=== PATIENT | female | born 1970 | race Caucasian/White ===

== ENCOUNTER 2016-06-17 23:02 | Emergency (ER) | payer BC ==
[2016-06-17] MEDS ORDERED: KETOROLAC 30 MG/1 ML SDV IVP ONE (23:28)
[2016-06-17] MEDS ORDERED: HYDROmorphONE/DILAUDID 1 MG/ML SYR IVP ONE (23:28)
[2016-06-17] MEDS ORDERED: FAMOTIDINE 20 MG TAB PO ONE (23:28)
[2016-06-17] MEDS ORDERED: NS 1,000 ML IV ONE (23:28)
[2016-06-17 23:37] LABS: % IMMATURE GRANULYOCYTES 0.3 % (0.0-1.1); ABSOLUTE IMMATURE GRANULOCYTES 0.04 10^3/uL (0.00-0.10); ADD DIFF? NO; ADD MORPH? NO; ADD SCAN? NO; ATYPICAL LYMPHOCYTE FLAG 0 (0-99); FRAGMENT RBC FLAG 0 (0-99); HEMATOCRIT 42.3 % (38.0-47.0); HEMOGLOBIN 14.2 g/dL (12.6-16.3); LEFT SHIFT FLG 0 (0-99); LIPEMIA HEMOLYSIS FLAG 80 (0-99); MEAN CELL HEMOGLOBIN 28.5 pg (27.9-34.1); MEAN CELL HEMOGLOBIN CONCENTR. 33.6 g/dL (32.4-36.7); MEAN CELL VOLUME 84.9 fL (81.5-99.8); MEAN PLATELET VOLUME 8.5 fL (8.7-11.7); PLATELET CLUMPS FLAG 0 (0-99); PLATELET COUNT 314 10^3/uL (150-400); RED BLOOD CELL COUNT 4.98 10^6/uL (4.18-5.33); RED CELL DISTRIBUTION WIDTH 12.9 % (11.5-15.2)
[2016-06-18] MEDS ORDERED: ONDANSETRON 4 MG/2 ML VIAL ONE (00:01)
[2016-06-18] MEDS ORDERED: ONDANSETRON 4 MG/2 ML VIAL IVP ONE (00:04)
[2016-06-18 00:06] LABS: ANION GAP 8 mEq/L (8-16); CALCIUM 9.1 mg/dL (8.5-10.4); CARBON DIOXIDE 25 mEq/l (22-31); CHLORIDE 109 mEq/L (97-110); CREATININE 0.7 mg/dL (0.6-1.0); GLOMERULAR FILTRATION RATE > 60; GLUCOSE 98 mg/dL (70-100); POTASSIUM 3.7 mEq/L (3.5-5.2); SODIUM 142 mEq/L (134-144)
--- NOTE | 2016-06-18 00:08 | EDPHY ---
H & P Stated Complaint: RUQ pain, Time Seen by Provider: 06/17/16 23:19 HPI/ROS: HPI The patient presents with abdominal pain that began at about 6:00 p.m. tonight when eating a pizza. The pain is described as a tightness throughout her upper abdomen associated with nausea. It has been constant, it is moderate in severity. She took ibuprofen and milk of magnesia without any improvement in her symptoms. She also tried a warm bath and that did not help. She has no prior history of similar pain. She denies any recent alcohol use. She does have a history of gastric bypass in 2011. She is currently being treated for chronic hepatitis C with Tomas. REVIEW OF SYSTEMS Constitutional: No fever, no chills. Eyes: No discharge. ENT: No sore throat. Cardiovascular: No chest pain, no palpitations. Respiratory: No cough, no shortness of breath. Gastrointestinal: No abdominal pain, no vomiting. Genitourinary: No hematuria. Musculoskeletal: No back pain. Skin: No rashes. Neurological: No headache. PMHx: Hep C, history of gastric bypass Soc Hx: denies EtOH use PHYSICAL General Appearance: Alert, no distress Eyes: Pupils equal and round no pallor or injection ENT, Mouth: Mucous membranes moist Respiratory: There are no retractions, lungs are clear to auscultation Cardiovascular: Regular rate and rhythm Gastrointestinal: Abdomen is soft with tenderness in the left upper quadrant without rebound or guarding Neurological: A&O, moves all extremities Skin: Warm and dry, no rashes Musculoskeletal: Neck is supple non tender Extremities: symmetrical, full range of motion Psychiatric: Patient is oriented X 3, there is no agitation Source: Patient Exam Limitations: No limitations - Personal History LMP (Females 10-55): Irregular Tetanus Vaccine Date: < 10 YEARS - Medical/Surgical History Hx Asthma: Yes Hx Chronic Respiratory Disease: No Hx Diabetes: No Hx Cardiac Disease: No Hx Renal Disease: No Hx Cirrhosis: No Hx Alcoholism: No Hx HIV/AIDS: No Hx Splenectomy or Spleen Trauma: No Other PMH: uterine ablation/hep c, asthma. surgery tonsilectomy, gastric bypass, tubal ligation - Social History Smoking Status: Heavy smoker Constitutional: Initial Vital Signs Temperature (C) 37.3 C 06/17/16 23:06 Heart Rate 103 H 06/17/16 23:06 Respiratory Rate 20 06/17/16 23:06 Blood Pressure 163/113 H 06/17/16 23:06 O2 Sat (%) 99 06/17/16 23:06 O2 Delivery Mode Room Air O2 (L/minute) 2 Allergies/Adverse Reactions: Penicillins Allergy (Severe, Verified 10/01/15 13:37) Hives Home Medications: Medication Instructions Recorded Albuterol Inhaler 08/29/15 Diazepam [Valium 10 MG (RX)] 10 mg PO TID PRN #20 tab 08/29/15 Cyclobenzaprine [Flexeril 10 MG 10 mg PO TID PRN #20 tab 09/10/15 (RX)] Diazepam [Valium] 5 mg PO TID PRN #15 tab 09/10/15 oxyCODONE/APAP 5/325 [Percocet 1 tab PO Q4-6PRN PRN #14 tab 09/10/15 5/325 (*)] oxyCODONE/APAP 5/325 [Percocet 1 tab PO Q4-6PRN PRN #10 tab 10/01/15 5/325] Medical Decision Making Procedures: Bedside limited abdominal Ultrasound- performed and interpreted by me. Indication: Pancreatitis Findings: No gallstones no gallbladder wall thickening, no pericholecystic fluid Impression: No sonographic evidence of cholelithiasis or cholecystitis ED Course/Re-evaluation: The patient was given IV fluids and pain medication with some improvement in her symptoms. Labs were obtained which reveal an elevated lipase. I feel she could have pancreatitis as related to her alcohol use. I have performed a right upper quadrant ultrasound and she has no signs of gallstones. Of note, her medication for hep C Harvoni can cause an elevated lipase. I do not think she has any complication of her gastric bypass surgery and she is not vomiting and is having normal bowel movements. Her abdominal pain resolved while in the emergency room. She will be discharged home with follow up with her primary care doctor. I have advised her on a clear liquid diet. There is some concern about opiate pain medication abuse, thus I will not prescribe this for her at this time. Differential Diagnosis: This is a 45-year-old female who presents with upper abdominal pain which has been present for the last several hours after eating pizza. Her symptoms are associated with nausea. On exam, she is tender in her left upper quadrant. Differential diagnosis includes pancreatitis, gastritis, biliary colic. - Data Points Laboratory Results: Laboratory Results 06/17/16 23:30 06/17/16 23:30 06/17/16 06/17/16 23:50 23:30 WBC 11.62 H 10^3/uL (3.80-9.50) RBC 4.98 10^6/uL (4.18-5.33) Hgb 14.2 g/dL (12.6-16.3) Hct 42.3 % (38.0-47.0) MCV 84.9 fL (81.5-99.8) MCH 28.5 pg (27.9-34.1) MCHC 33.6 g/dL (32.4-36.7) RDW 12.9 % (11.5-15.2) Plt Count 314 10^3/uL (150-400) MPV 8.5 L fL (8.7-11.7) Neut % (Auto) 79.0 H % (39.3-74.2) Lymph % (Auto) 11.5 L % (15.0-45.0) [place] % (Auto) 7.3 % (4.5-13.0) Eos % (Auto) 1.6 % (0.6-7.6) Baso % (Auto) 0.3 % (0.3-1.7) Nucleat RBC Rel Count 0.0 % (0.0-0.2) Absolute Neuts (auto) 9.17 H 10^3/uL (1.70-6.50) Absolute Lymphs (auto) 1.34 10^3/uL (1.00-3.00) Absolute Monos (auto) 0.85 H 10^3/uL (0.30-0.80) Absolute Eos (auto) 0.19 10^3/uL (0.03-0.40) Absolute Basos (auto) 0.03 10^3/uL (0.02-0.10) Absolute Nucleated RBC 0.00 10^3/uL (0-0.01) Immature Gran % 0.3 % (0.0-1.1) Immature Gran # 0.04 10^3/uL (0.00-0.10) Sodium 142 mEq/L (134-144) Potassium 3.7 mEq/L (3.5-5.2) Chloride 109 mEq/L (97-110) Carbon Dioxide 25 mEq/l (22-31) Anion Gap 8 mEq/L (8-16) BUN 11 mg/dL (7-23) Creatinine 0.7 mg/dL (0.6-1.0) Estimated GFR > 60 Glucose 98 mg/dL (70-100) Calcium 9.1 mg/dL (8.5-10.4) Total Bilirubin 1.0 mg/dL (0.1-1.4) Conjugated Bilirubin 0.6 H mg/dL (0.0-0.5) Unconjugated Bilirubin 0.4 mg/dL (0.0-1.1) AST 22 IU/L (14-46) ALT 25 IU/L (9-52) Alkaline Phosphatase 68 IU/L (38-126) Total Protein 7.1 g/dL (6.3-8.2) Albumin 4.2 g/dL (3.5-5.0) Lipase 313.0 H IU/L (23-300) Urine Color YELLOW Urine Appearance CLEAR Urine pH 6.0 (5.0-7.5) Ur Specific [place] 1.005 (1.002-1.030) Urine Protein NEGATIVE (NEGATIVE) Urine Ketones TRACE H (NEGATIVE) Urine Blood NEGATIVE (NEGATIVE) Urine Nitrate NEGATIVE (NEGATIVE) Urine Bilirubin NEGATIVE (NEGATIVE) Urine Urobilinogen NEGATIVE EU (0.2-1.0) Ur Leukocyte Esterase NEGATIVE (NEGATIVE) Ur Culture Indicated? NOT INDICATED (NI) Urine Glucose NEGATIVE (NEGATIVE) Medications Given: Discontinued Medications Famotidine (Pepcid) 20 mg PO EDNOW ONE Stop: 06/17/16 23:29 Last Admin: 06/17/16 23:59 Dose: Not Given Hydromorphone HCl (Dilaudid) 0.5 mg IVP EDNOW ONE Stop: 06/17/16 23:29 Last Admin: 06/17/16 23:59 Dose: 0.5 mg Hydromorphone HCl (Dilaudid) 0.5 mg IVP ONCE ONE Stop: 06/18/16 01:54 Last Admin: 06/18/16 01:54 Dose: 0.5 mg Sodium Chloride (Ns) 1,000 mls @ 0 mls/hr IV ONCE ONE PRN Reason: Wide Open Stop: 06/17/16 23:29 Last Admin: 06/18/16 00:00 Dose: 1,000 mls Sodium Chloride (Ns) 1,000 mls @ 0 mls/hr IV ONCE ONE PRN Reason: Wide Open Stop: 06/18/16 01:39 Last Admin: 06/18/16 01:52 Dose: 1,000 mls Ketorolac Tromethamine (Toradol) 30 mg IVP EDNOW ONE Stop: 06/17/16 23:29 Last Admin: 06/17/16 23:59 Dose: 30 mg Ondansetron HCl (Zofran) 4 mg IVP EDNOW ONE Stop: 06/18/16 00:05 Last Admin: 06/18/16 00:05 Dose: 4 mg Departure - Departure Disposition: Home, Routine, Self-Care Clinical Impression: Pancreatitis Qualifiers: Chronicity: acute Pancreatitis type: unspecified pancreatitis type Acute pancreatitis complication: unspecified Qualifier Code: (K85.90) Acute pancreatitis without necrosis or infection, unspecified Condition: Good Instructions: Pancreatitis (ED), Clear Liquid Diet (ED) Additional Instructions: Please take the clear liquids until your feeling better. You should follow up with your regular doctor in 1-2 days. Referrals: Delma Cedillo MD [Primary Care Provider] - As per Instructions
[2016-06-18 00:09] LABS: COLOR YELLOW; LEUKOCYTE ESTERASE,URINE NEGATIVE (NEGATIVE); NITRITE,URINE NEGATIVE (NEGATIVE)
[2016-06-18 00:38] LABS: ALBUMIN 4.2 g/dL (3.5-5.0); BILIRUBIN-CONJUGATED 0.6 mg/dL (0.0-0.5); BILIRUBIN-UNCONJUGATED 0.4 mg/dL (0.0-1.1); TOTAL PROTEIN 7.1 g/dL (6.3-8.2)
[2016-06-18] MEDS ORDERED: HYDROmorphONE/DILAUDID 1 MG/ML SYR IVP PRN (01:38)
[2016-06-18] MEDS ORDERED: NS 1,000 ML IV ONE (01:38)
[2016-06-18] MEDS ORDERED: HYDROmorphONE/DILAUDID 1 MG/ML SYR ONE (01:46)
[2016-06-18] MEDS ORDERED: HYDROmorphONE/DILAUDID 1 MG/ML SYR IVP ONE (01:53)
[2016-06-18 02:00] VITALS: RESP 16
[2016-06-18 02:45] VITALS: BP 133/74; PULSE 74; TEMP 98.1; O2SAT 93
== END 2016-06-18 02:44 | disposition home or self-care (01) ==
DX: K85.90 Acute pancreatitis without necrosis or infection, unspecified (principal); J45.909 Unspecified asthma, uncomplicated; F17.200 Nicotine dependence, unspecified, uncomplicated; Z98.51 Tubal ligation status
CPT/HCPCS: 96374; J1170; J1885; J2405

== ENCOUNTER 2016-06-18 14:09 | Inpatient (IN) | payer BC ==
--- NOTE | 2016-06-18 14:49 | EDPHY ---
H & P Stated Complaint: abd pain(seen yesterday) hypoxia in triage(out of inhaler) HPI/ROS: HPI CHIEF COMPLAINT: Abdominal pain HISTORY OF PRESENT ILLNESS: this patient 45-year-old female, significant past medical history for hepatitis-C, gastric bypass surgery, asthma, presents to the emergency room with epigastric burning abdominal pain. She has associated nausea with this however no vomiting. She states she was seen here last night for abdominal pain was diagnosed with mild pancreatitis. She tells me her pain persist. It is noted at triage her pulse ox was 85%. She does have a history asthma she does endorse mild wheezing however she tells me that she cannot take deep breaths in because hurts her abdomen. She does remain normal bowel movement this morning, no fever, denies chest pain or shortness of breath. Tells me abdominal pain 10/10 epigastric. Worse since yesterday. Past Medical History: Hepatitis-C, asthma, pancreatitis Past Surgical History: Gastric bypass surgery Social History: tobacco use, denies alcohol, denies illicit drugs, lives locally Family History: Noncontributory ROS REVIEW OF SYSTEMS: A comprehensive 10 point review of systems is otherwise negative aside from elements mentioned in the history of present illness. Exam Constitutional triage nursing summary reviewed, vital signs reviewed, awake/ alert. Eyes normal conjunctivae and sclera, EOMI, PERRLA. HENT normal inspection, atraumatic, moist mucus membranes, no epistaxis, neck supple/ no meningismus, no raccoon eyes. Respiratory faint wheezing throughout all lung navas, normal breath sounds, no respiratory distress, no wheezing. Cardiovascular rate normal, regular rhythm, no murmur, no edema, distal pulses normal. Gastrointestinal soft, mild tenderness palpation epigastric region, no rebound , no guarding, normal bowel sounds, no distension, no pulsatile mass. Genitourinary no CVA tenderness. Musculoskeletal no midline vertebral tenderness, full range of motion, no calf swelling, no tenderness of extremities, no meningismus, good pulses, neurovascularly intact. Skin pink, warm, & dry, no rash, skin atraumatic. Neurologic awake, alert and oriented x 3, AAOx3, moves all 4 extremities equally, motor intact, sensory intact, CN II-XII intact, normal cerebellar, normal vision, normal speech. Psychiatric normal mood/affect. Heme/Lymph/Immune no lymphadenopathy. Differential diagnosis includes but is not limited to and in no particular order : Bowel obstruction, appendicitis, gallbladder disease, diverticulitis, colitis , enteritis, perforated viscus, gastritis, GERD, esophagitis, urinary tract infection, pyelonephritis, kidney stones Medical Decision Making: This patient had an IV established receive IV fluid bolus, Zofran for nausea, Dilaudid for pain. Patient had a CT scan abdomen pelvis with IV contrast to further help delineate her acute abdominal pain. She will have a chest x-ray due to pulse ox being low 85%, will check a troponin EKG. And re-evaluate. Basic blood work as well including CBC, electrolytes LFTs. Lipase. Re-evaluation: EKG interpretation by me on record in [employer] system. Impression time of EKG 1538, this is sinus rhythm rate of 86 there is no acute ischemic changes specifically notice to ST elevation, ST depression, T-wave abnormalities prolonged intervals. ED x-ray chest one view: this shows right basilar atelectasis versus infiltrate. Also appears to be possible free air under the right anastasia- diaphragm. CT scan of the abdomen pelvis with IV contrast. The results of the study are shows a moderate to large amount of free air in the abdomen, most likely from suture site of gastric bypass. The study was read by Dr. Carlisle. I viewed the images myself on the PACS system. 1630: this time this patient is hemodynamically stable I will consult surgery due to free air in the abdomen. She is NPO. IV Invanz has been ordered for intra-abdominal process. I have canceled her Rocephin and azithro. Critical Care: Total Critical Care Time Spent Managing this Patient: 60 Minutes. This time was spent Exclusively with this patient. This Care was exclusive of procedures. The Organ System/life at risk was intra-abdominal free air This Patient was in Critical Condition because intra-abdominal free air bowel perforation 1636: I have updated the patient on her CT scan findings. She understands to not eat or drink anything. Given the amount of free air on her CT scan I have consulted General surgery Dr. Daley to see and evaluate the patient. Source: Patient - Personal History LMP (Females 10-55): Over 28 Days Ago Current Tetanus/Diphtheria Vaccine: Yes Tetanus Vaccine Date: < 10 YEARS - Medical/Surgical History Hx Asthma: Yes Hx Chronic Respiratory Disease: No Hx Diabetes: No Hx Cardiac Disease: No Hx Renal Disease: No Hx Cirrhosis: No Hx Alcoholism: No Hx HIV/AIDS: No Hx Splenectomy or Spleen Trauma: No Other PMH: uterine ablation/hep c, asthma. surgery tonsilectomy, gastric bypass, tubal ligation - Social History Smoking Status: Heavy smoker Constitutional: Initial Vital Signs Temperature (C) 37.5 C 06/18/16 14:17 Heart Rate 98 06/18/16 14:17 Respiratory Rate 24 H 06/18/16 14:17 Blood Pressure 145/87 H 06/18/16 14:17 O2 Sat (%) 85 L 06/18/16 14:17 O2 Delivery Mode Nasal Cannula O2 (L/minute) 2 Allergies/Adverse Reactions: Penicillins Allergy (Severe, Verified 06/18/16 14:15) Hives Home Medications: Medication Instructions Recorded Albuterol Hfa Anes Only [Proair 1 - 2 puffs IH PRN PRN 08/29/15 Hfa Icu (*)] Ibuprofen [Motrin (*)] 600 mg PO PRN PRN 06/18/16 Ledipasvir/Sofosbuvir [Harvoni 1 each PO DAILY 06/18/16 90-400 mg Tablet] Magnesium Hydroxide [Milk of 30 ml PO PRN PRN 06/18/16 Magnesia] Zolpidem Tartrate [Ambien 5MG (*)] 5 mg PO HS 06/18/16 Medical Decision Making - Data Points Laboratory Results: Laboratory Results 06/18/16 14:45 06/18/16 14:45 Medications Given: Discontinued Medications Albuterol/Ipratropium (Duoneb) 3 ml IH EDNOW ONE Stop: 06/18/16 14:58 Last Admin: 06/18/16 15:15 Dose: 3 ml Hydromorphone HCl (Dilaudid) 1 mg IVP EDNOW ONE Stop: 06/18/16 14:57 Last Admin: 06/18/16 15:14 Dose: 1 mg Sodium Chloride (Ns) 2,000 mls @ 0 mls/hr IV ONCE ONE PRN Reason: Wide Open Stop: 06/18/16 14:57 Last Admin: 06/18/16 15:14 Dose: 2,000 mls Azithromycin 500 mg/ Dextrose 255 mls @ 255 mls/hr IV EDNOW ONE PRN Reason: Protocol Stop: 06/18/16 16:59 Last Admin: 06/18/16 16:33 Dose: Not Given Ceftriaxone Sodium/Dextrose (Rocephin 1 Gm (Premix)) 50 mls @ 100 mls/hr IV EDNOW ONE PRN Reason: Protocol Stop: 06/18/16 16:29 Last Admin: 06/18/16 16:34 Dose: Not Given Ertapenem 1 gm/ Sodium (Chloride) 100 mls @ 200 mls/hr IV EDNOW ONE PRN Reason: Protocol Stop: 06/18/16 17:00 Last Admin: 06/18/16 16:52 Dose: 100 mls Methylprednisolone Sodium Succinate (Solu-Medrol) 125 mg IVP EDNOW ONE Stop: 06/18/16 16:05 Last Admin: 06/18/16 16:34 Dose: Not Given Ondansetron HCl (Zofran) 4 mg IVP EDNOW ONE Stop: 06/18/16 14:57 Last Admin: 06/18/16 15:15 Dose: 4 mg Departure - Departure Disposition: [facility] Clinical Impression: Intra-abdominal free air of unknown etiology Abdominal pain Qualifiers: Abdominal location: generalized Qualifier Code: (R10.84) Generalized abdominal pain Condition: Fair
[2016-06-18] MEDS ORDERED: NS 2,000 ML IV ONE (14:56)
[2016-06-18] MEDS ORDERED: ONDANSETRON 4 MG/2 ML VIAL IVP ONE (14:56)
[2016-06-18] MEDS ORDERED: HYDROmorphONE/DILAUDID 1 MG/ML SYR IVP ONE (14:56)
[2016-06-18] MEDS ORDERED: IPRATROPIUM/ALBUTEROL 3 ML DEYVIAL IH ONE (14:57)
[2016-06-18 15:04] LABS: % IMMATURE GRANULYOCYTES 0.4 % (0.0-1.1); ABSOLUTE IMMATURE GRANULOCYTES 0.04 10^3/uL (0.00-0.10); ADD DIFF? NO; ADD MORPH? NO; ADD SCAN? NO; ATYPICAL LYMPHOCYTE FLAG 10 (0-99); FRAGMENT RBC FLAG 0 (0-99); HEMOGLOBIN 14.5 g/dL (12.6-16.3); LEFT SHIFT FLG 10 (0-99); LIPEMIA HEMOLYSIS FLAG 80 (0-99); MEAN CELL HEMOGLOBIN 28.2 pg (27.9-34.1); MEAN CELL HEMOGLOBIN CONCENTR. 32.2 g/dL (32.4-36.7); MEAN CELL VOLUME 87.5 fL (81.5-99.8); MEAN PLATELET VOLUME 8.8 fL (8.7-11.7); PLATELET CLUMPS FLAG 0 (0-99); PLATELET COUNT 319 10^3/uL (150-400); RED BLOOD CELL COUNT 5.14 10^6/uL (4.18-5.33); RED CELL DISTRIBUTION WIDTH 13.1 % (11.5-15.2)
[2016-06-18 15:18] LABS: ALANINE AMINOTRANSFERASE 22 IU/L (9-52); ALBUMIN 3.5 g/dL (3.5-5.0); ALKALINE PHOSPHATASE 67 IU/L (38-126); ANION GAP 9 mEq/L (8-16); ASPARTATE AMINOTRANSFERASE 18 IU/L (14-46); BILIRUBIN,TOTAL 1.3 mg/dL (0.1-1.4); BILIRUBIN-CONJUGATED 0.3 mg/dL (0.0-0.5); CARBON DIOXIDE 23 mEq/l (22-31); CHLORIDE 109 mEq/L (97-110); CREATININE 0.7 mg/dL (0.6-1.0); GLOMERULAR FILTRATION RATE > 60; GLUCOSE 81 mg/dL (70-100); POTASSIUM 4.2 mEq/L (3.5-5.2); SODIUM 141 mEq/L (134-144); TOTAL PROTEIN 6.5 g/dL (6.3-8.2)
[2016-06-18 15:21] LABS: INR 1.15 (0.83-1.16); PROTIME(PATIENT) 14.7 SEC (12.0-15.0)
[2016-06-18 15:22] LABS: APTT 30.3 SEC (23.0-38.0)
--- NOTE | 2016-06-18 15:22 | DX ---
Portable Chest, Single View 15:11 p.m. Hours Indication: Cough Comparison: 2 view chest dated October 01, 2015 Findings: Lungs are hypoventilated with linear opacities in the right base. Heart size is normal. No edema or effusion. Biphasic curvature is slightly worse since September 2015. Impression: Right basilar atelectasis versus pneumonia.
[2016-06-18 15:28] LABS: TROPONIN I < 0.012 ng/mL (0-0.034)
[2016-06-18 15:39] LABS: COLOR PALE YELLOW; LEUKOCYTE ESTERASE,URINE NEGATIVE (NEGATIVE); NITRITE,URINE NEGATIVE (NEGATIVE)
--- NOTE | 2016-06-18 15:44 | CPEKG ---
Heart Rate: 86 RR Interval: 698 P-R Interval: 144 QRSD Interval: 80 QT Interval: 352 QTC Interval: 421 P Hatley: 63 QRS Hatley: 77 T Wave Hatley: 46 EKG Severity - NORMAL ECG - EKG Impression: SINUS RHYTHM Electronically Signed By: Talat Lowe 18-Jun-2016 23:30:08
[2016-06-18] MEDS ORDERED: IOPAMIDOL (ISOVUE-300) 100 ML BTL IV ONE (15:48)
[2016-06-18] MEDS ORDERED: AZITHROMYCIN IV 500 MG in D5W 250 ML IV ONE (16:00)
[2016-06-18] MEDS ORDERED: methylPREDNISolone SOD SUCC 125 MG/2 ML VIAL IVP ONE (16:04)
[2016-06-18] MEDS ORDERED: ERTAPENEM 1 GM in NS 100 ML IV ONE (16:31)
--- NOTE | 2016-06-18 16:34 | CT ---
CT Scan of the Abdomen and Pelvis (With Contrast) 1605 hours History: Abdominal pain with nausea and vomiting. History of pancreatitis. History of gastric bypa ss surgery. Hepatitis C and tobacco use. Technique: Axial computed tomographic images of the abdomen and pelvis were obtained with the unevent ful intravenous administration of 90 mL Isovue-300 contrast. . Images were reviewed in multiple plane s. Dose reduction techniques were utilized. CT Abdomen and Pelvis Findings: Comparison to prior CT study of December 21, 2013. Bowel loops: There is a mild to moderate amount of free air within the upper abdomen. The site of crescencio gin is indeterminate but is probably in the region of the gastric sutures from previous gastric bypas s procedure. The remainder the bowel loops within the abdomen and pelvis demonstrate no significant t hickening or dilatation. There is a small amount of ascites in the lower pelvis. Lung bases: There is a band of atelectasis right lower lobe above the hemidiaphragm as well as some m ucous plugging to the right lower lobe posteriorly. Liver: Normal. Spleen: Normal. Gallbladder and Bile Ducts: Normal. Pancreas: Normal. Adrenals: Normal. Kidneys: No obstruction or solid masses. Abdominal Aorta: No aneurysm. Pelvic structures: The uterus is retroflexed. There is heterogeneous enhancement of the myometrium davis ggestive of some underlying fibroids. There is a septated cyst suspected left adnexa measuring about 4 x 3 cm. Involuted follicular cyst is also present posterior left ovary. There may also be involuted follicular cyst associated with the right ovary measuring about 3.1 x 1.5 cm. Bladder: Decompressed but otherwise normal. Appendix: Not well delineated. No bowel obstruction, or significant retroperitoneal lymphadenopathy. Skeletal system: Vertebral body heights are well-maintained. There are no significant lytic or scler otic osseous lesions. Impression: 1. Mild to moderate free air within the upper abdomen most likely from the region of the gastric bypa ss sutures. 2. Mild atelectasis right lower lobe with some mucus plugging to the right lower lobe. 3. Retroflexed uterus with underlying fibroid suspected. 4. Bilateral involuted follicular cysts suspected as well as septated cyst left adnexa. These findings were discussed by telephone with Dr. Talat Lowe at 1630 hrs.
[2016-06-18] MEDS ORDERED: BUPIVACAINE 0.5% 30 ML SDV ONE ×2 (17:30→19:08)
--- NOTE | 2016-06-18 17:54 | GHP ---
[f rep st] HISTORY AND PHYSICAL DATE OF ADMISSION: 06/18/2016 HISTORY OF PRESENT ILLNESS: The patient is a 45-year-old female who returned to the emergency depart ment today for severe abdominal pain. The patient reports pain worse over the epigastric region. Sh jaden reports it was much more distended last night which came to the emergency department when she was d iagnosed with mild pancreatitis. This morning the pain continued and became worse so the patient ret urned to the emergency department. She has a history of Julia-en-Y bypass/gastric bypass surgery. Th is was done in [place] by Dr. Hidalgo. PAST MEDICAL HISTORY: Hepatitis C, asthma. PAST SURGICAL HISTORY: Tubal ligation, gastric bypass, tonsillectomy. ALLERGIES: Penicillin. MEDICATIONS: Hepatitis medication, Harvoni, albuterol. SOCIAL HISTORY: Current smoker. No alcohol use. REVIEW OF SYSTEMS: Patient has a negative 10-point review of systems. PHYSICAL EXAM: GENERAL: Patient is standing up talking on the phone initially as I come into the ro om, but she has a slightly forward-flexed posture. HEAD AND NECK: Normocephalic, atraumatic. Non-s ick appearing. CHEST: CTA bilaterally. HEART: Regular rate. ABDOMEN: There is mild distention, soft to palpation, moderate epigastric tenderness to palpation. EXTREMITIES: No lower extremity margarito ma. LABORATORY STUDIES: White count 10.9, hematocrit 45. Complete metabolic panel normal. Normal lipas e. RADIOLOGY: CT scan of the abdomen demonstrates moderate free air within the upper abdomen most likel y from gastric bypass sutures. IMPRESSION: A 45-year-old female with free air. RECOMMENDATION: Patient has been added to the surgery schedule for tonight. Dr. Daley to see the bernardo heller shortly. Mary has been ordered for antibiotics. She will be kept n.p.o., pain medicine as n eeded. /[id number]/MODL
[2016-06-18] MEDS ORDERED: HYDROmorphONE/DILAUDID 1 MG/ML SYR IVP PRN (17:55)
[2016-06-18] MEDS ORDERED: ACETAMINOPHEN 325 MG TAB PO PRN (17:55)
[2016-06-18] MEDS ORDERED: HYDROCODONE/APAP 5/325 TAB PO PRN (17:55)
[2016-06-18] MEDS ORDERED: D5W NS 1,000 ML IV SCH (18:00)
[2016-06-18] MEDS ORDERED: MAGNESIUM HYDROXIDE 30 ML UDCUP PO PRN (18:00)
[2016-06-18] MEDS ORDERED: PROPOFOL 200 MG/20 ML VIAL ONE ×2 (18:01)
[2016-06-18] MEDS ORDERED: fentaNYL 100 MCG/2 ML INJ ONE (18:01)
[2016-06-18] MEDS ORDERED: ROCURONIUM 50 MG/5 ML VIAL ONE (18:04)
[2016-06-18] MEDS ORDERED: LIDOCAINE 2% 100 MG/5 ML SYR IVP ONE (18:05)
[2016-06-18] MEDS ORDERED: MIDAZOLAM 2 MG/2 ML VIAL ONE (18:17)
[2016-06-18] MEDS ORDERED: HEPARIN 1000 UNIT/1 ML MDV ONE (19:07)
[2016-06-18] MEDS ORDERED: ceFAZolin 1 GM VIAL ONE (19:07)
[2016-06-18] MEDS ORDERED: PHENYLEPHRINE HCL 100 MCG/ML SYR ONE (19:08)
[2016-06-18] MEDS ORDERED: DEXAMETHASONE 4 MG/ML VIAL ONE (20:04)
[2016-06-18] MEDS ORDERED: ONDANSETRON 4 MG/2 ML VIAL ONE (20:04)
[2016-06-18] MEDS ORDERED: SUGAMMADEX SODIUM 200 MG/2 ML VIAL IVP ONE (20:32)
[2016-06-18] MEDS ORDERED: MEPERIDINE 25 MG/ML SYR ONE (20:45)
[2016-06-18] MEDS ORDERED: FAMOTIDINE 20 MG/NACL/50 ML BAG IV ONE (20:45)
--- NOTE | 2016-06-18 21:14 | SOAPPROG ---
SOAP Progress Note Assessment/Plan: Assessment: 45F WITH SMALL AMOUNT OF FREE AIR/ SP GASTRIC BYPASS NO HX OF PEPTIC DISEASE/ NO PAIN, VOMITING OR OTHER GI SX ABD SOFT RISKS AND OPTIONS FULLY DISCUSSED IN LONG DISCUSSION SHE IS INSISTENT ABOUT NOT USING ANTACID RX AND ADAMANT THAT SHE DOES NOT WANT HER BYPASS TAKEN DOWN SHE IS ALSO VERY ADAMANT ABOUT LAPARASCOPIC APPROACH Plan: LAPAROSCOPY FOR REPAIR OF PERFORATED VISCUS 06/18/16 21:10 Objective: Vital Signs Temp Pulse Resp BP Pulse Ox 37.5 C 82 16 112/70 95 06/18/16 20:51 06/18/16 20:51 06/18/16 21:01 06/18/16 21:01 06/18/16 21:01 06/17/16 06/18/16 06/19/16 05:59 05:59 05:59 Intake Total 2030 Output Total 220 Balance 1810 PT 14.7 SEC (12.0-15.0) 06/18/16 14:45 INR 1.15 (0.83-1.16) 06/18/16 14:45 ICD10 Worksheet Patient Problems: Problems Problem Status Diagnosed Abdominal pain Acute Intra-abdominal free air of unknown etiology Acute Low back pain Acute Pancreatitis Acute
--- NOTE | 2016-06-18 21:17 | POSTOPPROG ---
Post Op Note Date of Operation: 06/18/16 Surgeon: Sarthak Daley Anesthesiologist: JOCELYN Anesthesia: GET(General Endotracheal) Pre-op Diagnosis: ERFORATED VISCUS Post-op Diagnosis: PERFORATED GASTRIC ULCER Indication: FREE AIR AND PAIN Procedure: LAPARASCOPIC ARNDY CLOSURE OF PERFORATED GASTRIC ULCER Findings: <1CM PERFORATED ULCERAT JUNCTION OF GASTRIC POUCH AND GASTRIC REMNANT Inf/Abcess present in the surg proc area at time of surgery?: Yes Depth: Organ Space EBL: Minimal Complications: 0
[2016-06-18] MEDS: FAMOTIDINE 20 MG/NACL 50 ML IV SCH (21:32)
[2016-06-18] MEDS: ONDANSETRON 4 MG/2 ML VIAL IVP PRN (21:56)
[2016-06-18] MEDS: D5W 1/2 NS W/ 20 KCl/L 1,000 ML IV SCH (21:57)
[2016-06-18] MEDS: HYDROmorphONE/DILAUDID 1 MG/ML SYR IVP PRN (21:57)
[2016-06-18] MEDS: ZOLPIDEM TARTRATE 5 MG TAB PO SCH (22:26)
[2016-06-19] MEDS: HYDROmorphONE/DILAUDID 1 MG/ML SYR IVP PRN ×7 (01:21→22:54)
[2016-06-19] MEDS: ONDANSETRON 4 MG/2 ML VIAL IVP PRN ×2 (02:12→12:33)
[2016-06-19] MEDS: D5W 1/2 NS W/ 20 KCl/L 1,000 ML IV SCH (05:48)
[2016-06-19 06:02] LABS: % IMMATURE GRANULYOCYTES 0.4 % (0.0-1.1); ABSOLUTE IMMATURE GRANULOCYTES 0.05 10^3/uL (0.00-0.10); ADD DIFF? NO; ADD MORPH? NO; ADD SCAN? NO; ATYPICAL LYMPHOCYTE FLAG 0 (0-99); FRAGMENT RBC FLAG 0 (0-99); HEMATOCRIT 37.2 % (38.0-47.0); HEMOGLOBIN 12.1 g/dL (12.6-16.3); LEFT SHIFT FLG 10 (0-99); LIPEMIA HEMOLYSIS FLAG 80 (0-99); MEAN CELL HEMOGLOBIN 28.8 pg (27.9-34.1); MEAN CELL HEMOGLOBIN CONCENTR. 32.5 g/dL (32.4-36.7); MEAN CELL VOLUME 88.6 fL (81.5-99.8); PLATELET CLUMPS FLAG 0 (0-99); PLATELET COUNT 263 10^3/uL (150-400); RED CELL DISTRIBUTION WIDTH 13.2 % (11.5-15.2)
[2016-06-19 06:12] LABS: AMYLASE < 30 IU/L (30-110); ANION GAP 4 mEq/L (8-16); CARBON DIOXIDE 24 mEq/l (22-31); CHLORIDE 111 mEq/L (97-110); CREATININE 0.7 mg/dL (0.6-1.0); GLOMERULAR FILTRATION RATE > 60; GLUCOSE 132 mg/dL (70-100); POTASSIUM 5.1 mEq/L (3.5-5.2); SODIUM 139 mEq/L (134-144)
[2016-06-19] MEDS ORDERED: ERTAPENEM 1 GM in NS 100 ML IV SCH (09:00)
[2016-06-19] MEDS: ERTAPENEM 1 GM in NS 100 ML IV SCH (09:22)
[2016-06-19] MEDS: SOFOSBUVIR PO SCH ×2 (10:28→13:00)
[2016-06-19] MEDS: LEDIPASVIR PO SCH ×2 (10:28→13:00)
[2016-06-19] MEDS: FAMOTIDINE 20 MG/NACL 50 ML IV SCH ×2 (10:29→20:27)
--- NOTE | 2016-06-19 10:30 | SOAPPROG ---
SOAP Progress Note Assessment/Plan: Assessment/Plan: 45 Y F c hx gastric bypass s/p repair of gastric ulcer c omental patch. POD#1. Unable to flush NGT. AXR pending. Continue routine post op care and pepcid. Will eventually need UGIS to evaluate repair and remnant gastric pouch-- possibly in next few days pending course. 06/19/16 10:29 Subjective: Wants the NGT out. Mild nausea. Pain controlled. No flatus. Objective: Vital Signs Temp Pulse Resp BP Pulse Ox 36.8 C 64 16 131/73 H 98 06/19/16 08:00 06/19/16 08:00 06/19/16 08:00 06/19/16 08:00 06/19/16 08:00 Laboratory Results 06/19/16 05:11 06/19/16 05:11 06/18/16 06/19/16 06/20/16 05:59 05:59 05:59 Intake Total 2953 Output Total 720 300 Balance 2233 -300 PT 14.7 SEC (12.0-15.0) 06/18/16 14:45 INR 1.15 (0.83-1.16) 06/18/16 14:45 alert, nad, frustrated and tearful ng in place, unable to flush, no output no wob rrr abd soft, inc cdi, appropriately ttp. per RN, hypoactive BS ICD10 Worksheet Patient Problems: Problems Problem Status Diagnosed Abdominal pain Acute Intra-abdominal free air of unknown etiology Acute Low back pain Acute
[2016-06-19] MEDS: ALBUTEROL 60 PUFFS/8 GM MDI IH PRN ×2 (10:32→16:48)
--- NOTE | 2016-06-19 11:07 | DX ---
Abdomen 2 views 1005 hours History: Small bowel obstruction. Nasogastric tube. Findings: Nasogastric tube in the left upper quadrant of the abdomen adjacent to several sutures. Ernie ateral lower lobe retrocardiac opacities which probably represent atelectasis or pneumonitis. Sutures and clips in the left side of the abdomen. Several mildly dilated loops of small bowel in the midabd omen suggesting partial small bowel obstruction. Scattered gas and stool in the colon. Impression: 1. Suspect early or partial small bowel obstruction. 2. Nasogastric tube in the stomach region.
[2016-06-19] MEDS ORDERED: IPRATROPIUM/ALBUTEROL 3 ML DEYVIAL ONE (16:40)
[2016-06-19] MEDS: METOCLOPRAMIDE 10 MG/2 ML VIAL IVP SCH ×2 (17:46→22:55)
[2016-06-20] MEDS: ZOLPIDEM TARTRATE 5 MG TAB PO SCH ×2 (00:33→20:16)
[2016-06-20] MEDS: D5W 1/2 NS W/ 20 KCl/L 1,000 ML IV SCH ×3 (02:34→21:47)
[2016-06-20] MEDS: HYDROmorphONE/DILAUDID 1 MG/ML SYR IVP PRN ×5 (04:07→23:13)
[2016-06-20] MEDS: METOCLOPRAMIDE 10 MG/2 ML VIAL IVP SCH ×4 (05:51→23:16)
[2016-06-20] MEDS: ALBUTEROL 60 PUFFS/8 GM MDI IH PRN ×2 (08:00→15:47)
[2016-06-20] MEDS: FAMOTIDINE 20 MG/NACL 50 ML IV SCH ×2 (08:23→19:39)
[2016-06-20] MEDS: ERTAPENEM 1 GM in NS 100 ML IV SCH (08:50)
--- NOTE | 2016-06-20 09:44 | SOAPPROG ---
SOAP Progress Note Assessment/Plan: Assessment: 45yo female s/p lap melita patch repair, post op #2, Hep C. History of gastric bypass. Still NPO, awaiting UGIS this AM. Pain is better than prior to surgery "much better" but still some ab pain overall, in general per pt. No N/V. Passing small amount of gas. PE comfortable Abdomen nondistended, bowel sounds upon auscultation. incisions clean/dry/no erythema, soft to palpaion Plan: await UGIS results, if grossly normal will consider trial of clears, will D/W Dr Daley prior to initiating clears. 06/20/16 09:41 Objective: Vital Signs Temp Pulse Resp BP Pulse Ox 36.7 C 67 16 103/76 95 06/20/16 08:00 06/20/16 08:00 06/20/16 08:00 06/20/16 08:00 06/20/16 08:00 Laboratory Results 06/19/16 05:11 06/19/16 05:11 06/19/16 06/20/16 06/21/16 05:59 05:59 05:59 Intake Total 2953 1032 Output Total 720 1200 500 Balance 2233 -168 -500 PT 14.7 SEC (12.0-15.0) 06/18/16 14:45 INR 1.15 (0.83-1.16) 06/18/16 14:45 ICD10 Worksheet Patient Problems: Problems Problem Status Diagnosed Abdominal pain Acute Intra-abdominal free air of unknown etiology Acute Low back pain Acute
[2016-06-20] MEDS: ONDANSETRON 4 MG/2 ML VIAL IVP PRN (09:51)
--- NOTE | 2016-06-20 11:05 | DX ---
Upper GI With Water-Soluble Contrast Indication: Recent repair of gastric ulcer. History of gastric bypass surgery. Technique: The distal esophagus, stomach and pulled up jejunal limb were evaluated with real-time flu oroscopy while patient ingested [id number]. Cumulative dose: 46.4 mGy. Fluoroscopy time: 1.1 minute. Comparison: CT abdomen and pelvis dated June 18, 2016 Findings: Contrast readily passes downstream from the distal esophagus into the gastric remnant and p ulled up loop of jejunum. No leak or accumulation of contrast outside the lumen. Contrast readily pas ses through the EG junction and the gastrojejunostomy. The excluded stomach never filled with contras t throughout the course of the exam. Impression: No leak following gastric ulcer repair. Comment: Results discussed with Mar Street PA-C.
[2016-06-20] MEDS: SOFOSBUVIR PO SCH (12:15)
[2016-06-20] MEDS: LEDIPASVIR PO SCH (12:15)
[2016-06-20] MEDS: OXYCODONE/APAP 5/325 TAB PO PRN (20:16)
[2016-06-21] MEDS: ALBUTEROL 60 PUFFS/8 GM MDI IH PRN ×3 (02:21→19:33)
[2016-06-21] MEDS: OXYCODONE/APAP 5/325 TAB PO PRN ×4 (02:23→19:31)
[2016-06-21] MEDS: METOCLOPRAMIDE 10 MG/2 ML VIAL IVP SCH ×3 (05:14→18:31)
[2016-06-21] MEDS: D5W 1/2 NS W/ 20 KCl/L 1,000 ML IV SCH (05:17)
[2016-06-21] MEDS: FAMOTIDINE 20 MG/NACL 50 ML IV SCH ×2 (08:27→19:33)
[2016-06-21] MEDS: ERTAPENEM 1 GM in NS 100 ML IV SCH (09:49)
--- NOTE | 2016-06-21 10:31 | SOAPPROG ---
SOAP Progress Note Assessment/Plan: Assessment: 45yo female s/p lap melita patch repair, post op #2, Hep C. History of gastric bypass. Normal UGIS yesterday. Tolerating clears, "hungry". still having small amount of pain when ambulating but non in bed this AM. PE Comfortable abdomen very soft nontender to palpation, bowel sounds present Plan advance diet d/c in 1-2 days if off iv pain meds and doing well clinically. 06/20/16 09:41 06/21/16 10:29 Objective: Vital Signs Temp Pulse Resp BP Pulse Ox 36.7 C 57 L 12 107/66 84 L 06/21/16 07:58 06/21/16 07:58 06/21/16 07:58 06/21/16 07:58 06/21/16 08:39 Laboratory Results 06/19/16 05:11 06/19/16 05:11 06/20/16 06/21/16 06/22/16 05:59 05:59 05:59 Intake Total 1032 3550 Output Total 1200 2150 250 Balance -168 1400 -250 PT 14.7 SEC (12.0-15.0) 06/18/16 14:45 INR 1.15 (0.83-1.16) 06/18/16 14:45 ICD10 Worksheet Patient Problems: Problems Problem Status Diagnosed Abdominal pain Acute Intra-abdominal free air of unknown etiology Acute Low back pain Acute
[2016-06-21] MEDS: SOFOSBUVIR PO SCH (11:32)
[2016-06-21] MEDS: LEDIPASVIR PO SCH (11:32)
[2016-06-21] MEDS: ZOLPIDEM TARTRATE 5 MG TAB PO SCH (19:43)
[2016-06-22] MEDS: METOCLOPRAMIDE 10 MG/2 ML VIAL IVP SCH ×2 (00:14→05:13)
[2016-06-22] MEDS: ALBUTEROL 60 PUFFS/8 GM MDI IH PRN (05:13)
[2016-06-22] MEDS: OXYCODONE/APAP 5/325 TAB PO PRN ×2 (05:13→08:51)
[2016-06-22] MEDS: FAMOTIDINE 20 MG/NACL 50 ML IV SCH (08:20)
[2016-06-22 08:26] VITALS: BP 128/84; PULSE 69; RESP 14; TEMP 98.2; O2SAT 93
[2016-06-22] MEDS: ERTAPENEM 1 GM in NS 100 ML IV SCH (08:48)
[2016-06-22] MEDS ORDERED: CYANO/VITAMIN B12 1000 MCG/ML VIAL IM ONE (10:22)
[2016-06-22] MEDS: SOFOSBUVIR PO SCH (10:56)
[2016-06-22] MEDS: LEDIPASVIR PO SCH (10:56)
--- NOTE | 2016-06-30 07:27 | GDS ---
[f rep st] DISCHARGE SUMMARY REASON FOR ADMISSION: Free air secondary to gastric ulcer. OTHER PERTINENT DIAGNOSES: 1. History of gastric bypass surgery. 2. History of hepatitis C. 3. Asthma. HOSPITAL COURSE: The patient was a 45-year-old female, who returned to the emergency department on 0 06/18/2016 after being seen the day prior for evaluation of worsening abdominal pain. CT scan was don e, which demonstrated free intraabdominal air. The patient underwent laparoscopic Artemio patch repai r of ulcer with Dr. Daley. Her hospital course was fairly unremarkable, and she was eventually disch arged. It is important to note she did have an upper GI series which was normal prior to discharge. At the time of discharge, patient was tolerating a regular diet, her pain was well controlled on oral medication, and she was instructed to follow up in our office in approximately 10 days. No heavy li fting for 6 weeks, if there are any issues or the patient returns to the emergency department, az[place]a can be reached at . /[id number]/MODL
--- NOTE | 2016-07-03 21:06 | GOP ---
[f rep st] OPERATIVE REPORT DATE OF OPERATION: 06/18/2016 SURGEON: Sarthak Daley MD CINDER DUMP CRANE OPERATOR: None. ANESTHESIA: General endotracheal. ANESTHESIOLOGIST: Dr. Cummings. PREOPERATIVE DIAGNOSIS: Perforated viscus. POSTOPERATIVE DIAGNOSIS: Perforated gastric ulcer at her previous gastric bypass site. PROCEDURE PERFORMED: Laparoscopic Artemio closure of a perforated gastric ulcer. It should be noted this was done at the insistence of the patient, who refused to have any takedown or open repair of her perforation. FINDINGS: Patient was found to have a 1 cm perforated ulcer at the junction of the gastric pouch an d the gastric remnant. Did not really involve her small-bowel anastomosis to the gastric remnant. ESTIMATED BLOOD LOSS: Negligible. DESCRIPTION OF PROCEDURE: Patient was taken to the operating room, where she received satisfactory general endotracheal anesthesia by Dr. Cummings. She was placed in supine position, prepped and draped in the usual sterile fashion. A periumbilical incision was made. A Veress needle inserted. Pneumoperitoneum was established and a trocar was introduced. Laparoscope introduced. Good visualization was obtained. Three other tro cars were placed in the upper abdomen under direct vision. The abdomen was explored. There was some cloudy peritoneal fluid which was suctioned clear, but the contamination level was actually small. The duodenum and gastric remnant appeared to be intact. U lceration and inflammation were discovered in the gastric pouch all up in the left upper quadrant. This was freed up. The edges were exposed and a definite gastric ulcer was identified. The area was then repaired after irrigation and cleansing with a Artemio patch-type closure. A piece of omentum was swung up in position. It was then anchored in place with interrupted 2-0 silk sutur es placed around the perforation site. The omental patch was placed over the perforation and then s ecured in place with these sutures, which were tied individually. The pouch was then inflated with air, and there was no evidence of any underwater leak. It was then inflated with some fluid containi ng methylene blue, and there was no leak. The abdomen was thoroughly irrigated and hemostasis was assured. Trocars were then removed under di rect vision. Trocar sites were closed with 0 Vicryl for the fascia and 4-[address] itch for the skin. All wounds were infiltrated with 0.5% Marcaine. There were no complications. /[id number]/MODL
== END 2016-06-22 11:40 | disposition home or self-care (01) | DRG 326 ==
LOC: F3E 21:41
PROVIDERS: ADMIT Surgery; ATTEND Surgery
PROC: 0DQ94ZZ Repair Duodenum, Percutaneous Endoscopic Approach (ICD-10-PCS; principal; 2016-06-18 18:15)
DX: K26.6 Chronic or unspecified duodenal ulcer with both hemorrhage and perforation (principal); K65.9 Peritonitis, unspecified; B19.20 Unspecified viral hepatitis C without hepatic coma; J45.909 Unspecified asthma, uncomplicated; Z72.0 Tobacco use; Z88.0 Allergy status to penicillin; Z98.84 Bariatric surgery status
CPT/HCPCS: 96374; J0456; J0690; J0696; J1100; J1170; J1335; J2001; J2250; J2370; J2405; J2704; J2765; J3010; Q9967

== ENCOUNTER → 2016-07-12 | Outpatient (CLI) | payer BC | LOC: FIMAGING 14:49 → EDSTATUS 14:50 | PROVIDERS: ATTEND Family Medicine | DX: R10.9 Unspecified abdominal pain (principal); R11.2 Nausea with vomiting, unspecified; Z87.19 Personal history of other diseases of the digestive system ==

== ENCOUNTER 2016-07-24 15:40 | Observation (INO) | payer BC ==
[2016-07-24] MEDS ORDERED: NS 1,000 ML IV ONE (16:04)
[2016-07-24] MEDS ORDERED: ONDANSETRON 4 MG/2 ML VIAL IVP ONE (16:16)
--- NOTE | 2016-07-24 16:16 | EDPHY ---
General Narrative: CHIEF COMPLAINT: abdominal pain, nausea and vomiting HISTORY OF PRESENT ILLNESS: one-day history of severe abdominal pain and multiple bouts of vomiting. She says this started while she was at work this afternoon. It is generalized but worse in the left upper quadrant epigastrium. Severe pain that is constant. Does not radiate. It is worse with any movement. Improves minimally with rest. Associated with 8 episodes of vomiting. No bloody emesis. No diarrhea. No constipation. No fever. No chest pain or shortness of breath. On June 18, 2016 she was taken to the operating room for laparoscopic repair a perforated viscus. She did not see her surgeon postoperatively. She did see her GI physician 10 days later with endoscopy performed. She is not certain of the results. No other associated complaints or modifying factors. PREVIOUS ABDOMINAL SURGERIES/DIAGNOSES: Peptic ulcer disease, perforated viscus status post laparoscopic Artemio patch RECENT IMAGING: UGI series June 20, 2016: No leak after recent artemio patch NPO: breakfast REVIEW OF SYSTEMS: Ten systems reviewed and are negative unless otherwise noted in the HPI EXAMINATION: General Appearance: Alert, no distress, crying but consolable Head: normocephalic, atraumatic Eyes: Pupils equal and round, no conjunctival pallor or injection ENT, Mouth: Mucous membranes moist. Uvula midline. No erythema or edema. There is tongue piercing without complication Neck: Normal inspection, supple, non-tender Respiratory: Lungs are clear to auscultation. no wheezing, rhonchi or crackles. Cardiovascular: Regular rate and rhythm . No murmur. Pulses intact distally and symmetrically Gastrointestinal: Abdomen is soft. significant tenderness to palpation of the epigastrium and left upper quadrant. There is guarding in all quadrants. Mild tympany. No rigidity. no CVA tenderness Neurological: A&O, nonfocal, normal gait Skin: Warm and dry, no rash Extremities: Nontender, no pedal edema Psychiatric: Mood and affect normal DIFFERENTIAL DIAGNOSES: Including but not limited to perforated viscus, duodenitis, gastric ulcer, pancreatitis, colitis, enteritis, peritonitis MDM: 4:15 p.m. abdominal pain that is worse in the epigastrium and left upper quadrant. She has pain out of proportion to examination. She is crying during my examination. She is however guarding and does have a recent surgery approximately 1 month ago. This was a laparoscopic Artemio patch of perforated viscus. She does have a history of gastric ulcers as well as pancreatitis. I have ordered IV fluid, pain medication, nausea medicine, Protonix IV. I have also ordered a CT scan of the abdomen and pelvis due to her significant pain and recent operative history. 6:05 p.m. notified by radiologist of the CT scan of the abdomen and pelvis. There is an intussusception at the jejunum that is causing obstruction. I immediately consulted general surgery, and I have just discussed this with him. Dr. Daley will come evaluate the patient in the ED shortly. Patient is asking to go outside and I have informed her that she needs to stay in her room since she has an IV in place. 6:[address] Daley is in the department and has evaluated the patient. he will take the patient to the OR and has agreed to admit to his service. The patient remains hemodynamically stable in no acute distress. ED Precautions: Worsening pain. Fever. Bloody stools. Bloody emesis. Constipation or diarrhea. SUPERVISION: Patient was evaluated in conjunction with the supervising physician. Please see their note for details. - History Smoking Status: Light smoker - Objective Vital Signs: Initial Vital Signs Temperature (C) 97.3 F 07/24/16 15:48 Heart Rate 70 07/24/16 15:48 Respiratory Rate 16 07/24/16 15:48 O2 Sat (%) 95 07/24/16 15:48 O2 Delivery Mode Room Air Allergies/Adverse Reactions: Penicillins Allergy (Severe, Verified 07/24/16 15:52) Hives Home Medications: Medication Instructions Recorded Acetaminophen [Tylenol 325mg (*)] 325 - 650 mg PO Q4HRS PRN #0 tab 06/22/16 Famotidine [Pepcid] 20 mg PO BID #60 ml 06/22/16 oxyCODONE/APAP 5/325 [Percocet 1 - 2 tab PO Q4HRS PRN #30 tab 06/22/16 5/325 (*)] Laboratory Results: Laboratory Results 07/24/16 16:10 07/24/16 16:10 07/24/16 07/24/16 07/24/16 17:15 16:10 16:10 WBC 6.59 10^3/uL 10^3/uL (3.80-9.50) RBC 5.14 10^6/uL 10^6/uL (4.18-5.33) Hgb 14.0 g/dL g/dL (12.6-16.3) Hct 42.7 % % (38.0-47.0) MCV 83.1 fL fL (81.5-99.8) MCH 27.2 pg L pg (27.9-34.1) MCHC 32.8 g/dL g/dL (32.4-36.7) RDW 13.5 % % (11.5-15.2) Plt Count 311 10^3/uL 10^3/uL (150-400) MPV 8.8 fL fL (8.7-11.7) Neut % (Auto) 65.5 % % (39.3-74.2) Lymph % (Auto) 22.6 % % (15.0-45.0) [place] % (Auto) 8.0 % % (4.5-13.0) Eos % (Auto) 2.6 % % (0.6-7.6) Baso % (Auto) 0.8 % % (0.3-1.7) Nucleat RBC Rel Count 0.0 % % (0.0-0.2) Absolute Neuts (auto) 4.32 10^3/uL 10^3/uL (1.70-6.50) Absolute Lymphs (auto) 1.49 10^3/uL 10^3/uL (1.00-3.00) Absolute Monos (auto) 0.53 10^3/uL 10^3/uL (0.30-0.80) Absolute Eos (auto) 0.17 10^3/uL 10^3/uL (0.03-0.40) Absolute Basos (auto) 0.05 10^3/uL 10^3/uL (0.02-0.10) Absolute Nucleated RBC 0.00 10^3/uL 10^3/uL (0-0.01) Immature Gran % 0.5 % % (0.0-1.1) Immature Gran # 0.03 10^3/uL 10^3/uL (0.00-0.10) Sodium 135 mEq/L mEq/L (134-144) Potassium 4.0 mEq/L mEq/L (3.5-5.2) Chloride 101 mEq/L mEq/L (97-110) Carbon Dioxide 24 mEq/l mEq/l (22-31) Anion Gap 10 mEq/L mEq/L (8-16) BUN 8 mg/dL mg/dL (7-23) Creatinine 0.7 mg/dL mg/dL (0.6-1.0) Estimated GFR > 60 Glucose 137 mg/dL H mg/dL (70-100) Calcium 9.6 mg/dL mg/dL (8.5-10.4) Total Bilirubin 0.6 mg/dL mg/dL (0.1-1.4) Conjugated Bilirubin 0.4 mg/dL mg/dL (0.0-0.5) Unconjugated Bilirubin 0.2 mg/dL mg/dL (0.0-1.1) AST 26 IU/L IU/L (14-46) ALT 29 IU/L IU/L (9-52) Alkaline Phosphatase 54 IU/L IU/L (38-126) Total Protein 7.4 g/dL g/dL (6.3-8.2) Albumin 4.4 g/dL g/dL (3.5-5.0) Lipase 208.0 IU/L IU/L (23-300) Urine Color YELLOW Urine Appearance HAZY Urine pH 7.0 (5.0-7.5) Ur Specific [place] 1.019 (1.002-1.030) Urine Protein NEGATIVE (NEGATIVE) Urine Ketones 1+ H (NEGATIVE) Urine Blood NEGATIVE (NEGATIVE) Urine Nitrate NEGATIVE (NEGATIVE) Urine Bilirubin NEGATIVE (NEGATIVE) Urine Urobilinogen NEGATIVE EU EU (0.2-1.0) Ur Leukocyte Esterase NEGATIVE (NEGATIVE) Ur Culture Indicated? NOT INDICATED (NI) Urine Glucose NEGATIVE (NEGATIVE) Medications Given: Discontinued Medications Sodium Chloride (Ns) 1,000 mls @ 0 mls/hr IV ONCE ONE PRN Reason: Wide Open Stop: 07/24/16 16:05 Last Admin: 07/24/16 16:25 Dose: 1,000 mls Pantoprazole Sodium 40 mg/ (Sodium Chloride) 100 mls @ 200 mls/hr IV EDNOW ONE Stop: 07/24/16 16:47 Last Admin: 07/24/16 16:45 Dose: 100 mls Morphine Sulfate (Morphine) 6 mg IVP EDNOW ONE Stop: 07/24/16 16:17 Last Admin: 07/24/16 16:40 Dose: 6 mg Ondansetron HCl (Zofran) 4 mg IVP EDNOW ONE Stop: 07/24/16 16:17 Last Admin: 07/24/16 16:40 Dose: 4 mg Departure - Departure Disposition: [facility] Inpatient Acute Clinical Impression: Intussusception of jejunum Abdominal pain Qualifiers: Abdominal location: generalized Qualified Code(s): R10.84 - Generalized abdominal pain Nausea & vomiting Qualifiers: Vomiting type: unspecified Vomiting Intractability: unspecified Qualified Code( s): R11.2 - Nausea with vomiting, unspecified Condition: Good Instructions: Peptic Ulcer (ED), Gastritis (ED), Acute Abdominal Pain (ED) Referrals: Delma Cedillo MD [Primary Care Provider] - As per Instructions Sarthak Daley MD [Medical Doctor] - As per Instructions Hernandez Franks [Medical Doctor] - As per Instructions
[2016-07-24] MEDS ORDERED: PANTOPRAZOLE SODIUM 40 MG in NS 100 ML IV ONE (16:18)
[2016-07-24 16:27] LABS: % IMMATURE GRANULYOCYTES 0.5 % (0.0-1.1); ABSOLUTE IMMATURE GRANULOCYTES 0.03 10^3/uL (0.00-0.10); ADD DIFF? NO; ADD MORPH? NO; ADD SCAN? NO; ATYPICAL LYMPHOCYTE FLAG 10 (0-99); FRAGMENT RBC FLAG 0 (0-99); HEMATOCRIT 42.7 % (38.0-47.0); LEFT SHIFT FLG 0 (0-99); LIPEMIA HEMOLYSIS FLAG 80 (0-99); MEAN CELL HEMOGLOBIN 27.2 pg (27.9-34.1); MEAN CELL HEMOGLOBIN CONCENTR. 32.8 g/dL (32.4-36.7); MEAN CELL VOLUME 83.1 fL (81.5-99.8); MEAN PLATELET VOLUME 8.8 fL (8.7-11.7); PLATELET CLUMPS FLAG 20 (0-99); PLATELET COUNT 311 10^3/uL (150-400); RED BLOOD CELL COUNT 5.14 10^6/uL (4.18-5.33); RED CELL DISTRIBUTION WIDTH 13.5 % (11.5-15.2)
[2016-07-24 17:15] LABS: ALANINE AMINOTRANSFERASE 29 IU/L (9-52); ALBUMIN 4.4 g/dL (3.5-5.0); ALKALINE PHOSPHATASE 54 IU/L (38-126); ANION GAP 10 mEq/L (8-16); ASPARTATE AMINOTRANSFERASE 26 IU/L (14-46); BILIRUBIN,TOTAL 0.6 mg/dL (0.1-1.4); BILIRUBIN-CONJUGATED 0.4 mg/dL (0.0-0.5); BILIRUBIN-UNCONJUGATED 0.2 mg/dL (0.0-1.1); CALCIUM 9.6 mg/dL (8.5-10.4); CARBON DIOXIDE 24 mEq/l (22-31); CHLORIDE 101 mEq/L (97-110); CREATININE 0.7 mg/dL (0.6-1.0); GLOMERULAR FILTRATION RATE > 60; GLUCOSE 137 mg/dL (70-100); SODIUM 135 mEq/L (134-144); TOTAL PROTEIN 7.4 g/dL (6.3-8.2)
[2016-07-24] MEDS ORDERED: IOPAMIDOL (ISOVUE-300) 100 ML BTL IV ONE (17:22)
[2016-07-24 17:47] LABS: COLOR YELLOW; LEUKOCYTE ESTERASE,URINE NEGATIVE (NEGATIVE); NITRITE,URINE NEGATIVE (NEGATIVE)
[2016-07-24] MEDS ORDERED: HYDROmorphONE/DILAUDID 1 MG/ML SYR IVP ONE (18:04)
[2016-07-24] MEDS ORDERED: ceFAZolin 1 GM/5 ML SYR ONE (19:49)
[2016-07-24] MEDS ORDERED: BUPIVACAINE 0.5% 30 ML SDV ONE (19:49)
[2016-07-24] MEDS ORDERED: HEPARIN 1000 UNIT/1 ML MDV ONE (19:49)
[2016-07-24] MEDS ORDERED: MIDAZOLAM 2 MG/2 ML VIAL ONE ×2 (19:57→21:29)
[2016-07-24] MEDS ORDERED: fentaNYL 100 MCG/2 ML INJ ONE ×3 (20:09→21:29)
[2016-07-24] MEDS ORDERED: ONDANSETRON 4 MG/2 ML VIAL ONE (20:13)
[2016-07-24] MEDS ORDERED: KETOROLAC 30 MG/1 ML SDV ONE (20:15)
[2016-07-24] MEDS ORDERED: DEXAMETHASONE 4 MG/ML VIAL ONE (20:15)
--- NOTE | 2016-07-24 20:31 | GHP ---
HISTORY OF PRESENT ILLNESS: A 45-year-old female who presents with a history of severe abdominal pain having multiple bouts of abdominal pain over the last few weeks. She had this associated with vomiting, although she has to initiate her own vomiting. She is status post a gastric bypass, and she has had a perforation of the gastric bypass. The patient is worse with movement. She is not having any bloody bowel movements, diarrhea or fever. CT scan tonight reveals an intussusception which appears to be quite thick and almost chronic. She is admitted at this time for a laparoscopy and/or laparotomy for resolution of this problem. PAST MEDICAL HISTORY: Includes peptic ulcer disease, perforated viscus, status post a gastric bypass surgery. REVIEW OF SYSTEMS: Negative, except that she smokes cigarettes on a complete full review of systems. ALLERGIES: Penicillin. MEDICATIONS: Pepcid and Percocet. PHYSICAL EXAM: GENERAL: Reveals an alert 45-year-old female, in no acute distress. HEAD/NECK: Reveals no icterus or adenopathy. CHEST: Symmetrical and clear. CARDIAC: Regular rhythm. ABDOMEN: Soft. She is tender in the epigastrium, but there are no palpable masses. No rebound and no guarding. She has no CVA tenderness. No hernias are present. EXTREMITIES: Benign with full pulses. IMPRESSION: Abdominal pain, possible intussusception. The risks and options have been fully discussed including alternate diagnosis, resolution of the problem prior to surgery, conversion to an open procedure, and she wishes to proceed. Plan is laparoscopy, possible laparotomy. /[id number]/MODL MTDD
--- NOTE | 2016-07-24 21:13 | POSTOPPROG ---
Post Op Note Date of Operation: 07/24/16 Surgeon: Sarthak Daley Anesthesiologist: MARISOL Anesthesia: GET(General Endotracheal) Pre-op Diagnosis: INTUSSUCEPTION Post-op Diagnosis: SAME Indication: PAIN, OBSTRUCTION Procedure: LAPAROSCOPY AND LAPAROTOMY WITH REDUCTION OF INTUSSUCEPTION Findings: 10 INCHES OF INTUSSUCEPTED JEJUNEUM Inf/Abcess present in the surg proc area at time of surgery?: No Depth: Organ Space EBL: Minimal Complications: 0 Specimen(s): 0
[2016-07-24] MEDS ORDERED: OXYCODONE/APAP 5/325 TAB PO PRN (21:17)
[2016-07-24] MEDS ORDERED: ONDANSETRON 4 MG/2 ML VIAL IVP PRN (21:17)
[2016-07-24] MEDS: KETOROLAC 15 MG/1 ML SDV IVP SCH (23:08)
[2016-07-24] MEDS: D5W 1/2 NS W/ 20 KCl/L 1,000 ML IV SCH (23:14)
[2016-07-24] MEDS: FAMOTIDINE 20 MG/NACL 50 ML IV SCH (23:14)
[2016-07-24] MEDS: HYDROmorphONE/DILAUDID 1 MG/ML SYR IVP PRN (23:26)
[2016-07-25 04:31] VITALS: TEMP 98.2
[2016-07-25] MEDS: KETOROLAC 15 MG/1 ML SDV IVP SCH ×2 (04:33→11:44)
[2016-07-25] MEDS: HYDROmorphONE/DILAUDID 1 MG/ML SYR IVP PRN (07:14)
[2016-07-25 07:49] VITALS: BP 112/67; PULSE 62; RESP 16; O2SAT 90
[2016-07-25] MEDS: FAMOTIDINE 20 MG/NACL 50 ML IV SCH (08:16)
[2016-07-25] MEDS: D5W 1/2 NS W/ 20 KCl/L 1,000 ML IV SCH (08:18)
[2016-07-25] MEDS ORDERED: NICOTINE POLACRILEX 2 MG GUM B PRN (09:01)
--- NOTE | 2016-07-25 09:57 | SOAPPROG ---
SOAP Progress Note Assessment/Plan: Assessment/Plan: 45 Y F c hx multiple abdominal surgeries including gastric bypass now s/p minilaparotomy for intussusception, POD#1. Doing well. Pain controlled. Good bowel function. Mobilizing well. Advance diet and then possible d/c to home later today vs in am. S: pain controlled. No n/v. eager to go home and go back to work O: alert, oriented, nad ncat, mmm ctab rrr abd soft, +BS inc clean, min serosanguinous spotting on on dressing 07/25/16 09:53 Objective: Vital Signs Temp Pulse Resp BP Pulse Ox 36.8 C 62 16 112/67 90 L 07/25/16 07:47 07/25/16 07:47 07/25/16 07:47 07/25/16 07:47 07/25/16 07:47 07/24/16 07/25/16 07/26/16 05:59 05:59 05:59 Intake Total 2620 Output Total 15 Balance 2605 ICD10 Worksheet Patient Problems: Problems Problem Status Onset Abdominal pain Acute Intussusception of jejunum Acute Nausea & vomiting Acute Abdominal pain Acute Intra-abdominal free air of unknown etiology Acute Low back pain Acute Pancreatitis Acute
--- NOTE | 2016-07-29 09:46 | GOP ---
[f rep st] OPERATIVE REPORT DATE OF OPERATION: 07/24/2016 SURGEON: Sarthak Daley MD PREOPERATIVE DIAGNOSIS: Abdominal pain and intussusception. POSTOPERATIVE DIAGNOSIS: Abdominal pain and intussusception. PROCEDURE PERFORMED: Laparoscopy and laparotomy with reduction of intussusception. FINDINGS: Patient was found to have 10 inches of intussuscepted jejunum. There was no obvious lead point. It was close to the previous jejunal anastomosis from her gastric bypass. DESCRIPTION OF PROCEDURE: The patient was taken to the operating room where she received satisfacto ry general endotracheal anesthesia by Dr. Chin. She was placed in a supine position, prepped and draped in the usual sterile fashion. A periumbilical incision was made. A Veress needle was i nserted. Pneumoperitoneum was established. Trocar was introduced. Laparoscope was introduced. Go od visualization was obtained. On evaluating the abdomen, it was apparent that she had a definite i ntussusception in the left upper quadrant. Gentle traction did not appear to be able to relieve osei t laparoscopically. A short periumbilical incision was made and carried through the linea alba. Th e bowel was able to be elevated up into the wound and with gentle massage and traction the intussusc eption was relieved. There was no obvious lead point. No palpable masses or polyps. The bowel was completely viable. The only associated area was the previous bowel anastomosis which was distal to the intussusception and not actually involved in the intussusception. Wound was irrigated. The re mainder of the abdomen appeared to be free from any difficulties. The incision was then closed with 0 PDS suture for the linea alba. The wound was infiltrated with 0.5% Marcaine with a 3-0 Vicryl fo r the subcutaneous tissue and 4-0 Monocryl subcuticular stitch for the skin. The trocar sites were also closed with 4-0 Monocryl and all incisions in layers were infiltrated with 0.5% Marcaine. She tolerated the procedure well and was taken to the recovery room in good condition. There were no co mplications. /[id number]/MODL
== END 2016-07-25 13:14 | disposition home or self-care (01) ==
LOC: INTOOBSV 18:34 → F3E 22:27
PROVIDERS: ADMIT Surgery; ATTEND Surgery
DX: K56.1 Intussusception (principal); Z98.84 Bariatric surgery status; Z53.31 Laparoscopic surgical procedure converted to open procedure
CPT/HCPCS: 44050; 74177; 96365; 96375; 96376; 99285; G0378; J1100; J1170; J1885; J1956; J2250; J2405; J3010; Q9967